=== PATIENT | male | born 1970 | race Caucasian/White ===

== ENCOUNTER 2017-04-26 11:33 | Emergency (ER) | payer OTHER | END 2017-04-26 13:52 | disposition home or self-care (01) | LOC: ER 11:33 | DX: M54.5 Low back pain (principal); G89.29 Other chronic pain; K74.60 Unspecified cirrhosis of liver; F17.210 Nicotine dependence, cigarettes, uncomplicated; Z79.899 Other long term (current) drug therapy | CPT/HCPCS: 99282 ==